=== PATIENT | female | born 1945 | race Caucasian/White ===

== ENCOUNTER 2017-09-15 08:57 | Emergency (ER) | payer MEDICARE, BC ==
[2017-09-15 11:11] VITALS: BP 170/79
--- NOTE | 2017-09-15 11:39 | EDM.PDOC ---
ED HPI GENERAL MEDICAL PROBLEM - General Chief Complaint: Bite:Animal, Insect Stated Complaint: TICK BITE - R GROIN Time Seen by Provider: 09/15/17 11:21 Source of Information: Reports: Patient History Limitations: Reports: No Limitations - History of Present Illness INITIAL COMMENTS - FREE TEXT/NARRATIVE: 72 yo female presents to the ER with three day hx of night sweats and fatigue. She was seen in clinic after tick bite 2 weeks ago with negative for lymes. She did find a deer tick right groin yesterday. She removed tick and is pretty sure it was a deer tick. She has had Lyme's disease in the past and states she feel very similar to then. She also complains of itchy scalp. She does take tramadol and stated that she did not eat with this medication this morning. generally healthy. 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, Heart Murmur Musculoskeletal History: Reports: Osteoarthritis Neurological History: Reports: Brain Injury Dermatologic History: Reports: Benign Melanoma - Past Surgical History Female Surgical History: Reports: Section Social & Family History - Tobacco Use Smoking Status *Q: Never Smoker ED ROS GENERAL - Review of Systems Review Of Systems: See Below Constitutional: Reports: Fever, Chills, Malaise, Fatigue HEENT: Denies: Rhinitis, Sinus Problem Respiratory: Denies: Shortness of Breath, Wheezing, Cough Cardiovascular: Denies: Chest Pain GI/Abdominal: Denies: Abdominal Pain : Denies: Dysuria ED EXAM, ANIMAL BITE - Physical Exam Exam: See Below Exam Limited By: No Limitations General Appearance: Alert, WD/WN, No Apparent Distress Head: Atraumatic, Normocephalic Neck: Normal Inspection, Supple, Non-Tender. No: Lymphadenopathy (R), Lymphadenopathy (L) Respiratory/Chest: No Respiratory Distress, Lungs Clear, Normal Breath Sounds Cardiovascular: Regular Rate, Rhythm GI/Abdominal: Soft, Non-Tender Neurological: Alert, Oriented Psychiatric: Normal Affect, Normal Mood Skin Exam: Normal Color, Warm/Dry, Rash (target lesion right groin1 cm in diameter) Course - Vital Signs Last Recorded V/S: Last Vital Signs Temp 36.3 C 09/15/17 11:10 Pulse 68 09/15/17 11:10 Resp 13 09/15/17 11:10 BP 170/79 H 09/15/17 11:10 Pulse Ox 98 09/15/17 11:10 Departure - Departure Time of Disposition: 11:34 Disposition: Home, Self-Care 01 Condition: Good Clinical Impression: Lyme disease, Itchy scalp Tick bite of groin Qualifiers: Encounter type: initial encounter Qualified Code(s): S30.861A - Insect bite ( nonvenomous) of abdominal wall, initial encounter - Discharge Information Instructions: Tick Bite Information, Adult, [id number] Referrals: Linnea Giang PA [Primary Care Provider] - Forms: ED Department Discharge Additional Instructions: Doxycycline 100 mg twice daily for 14 days. be sure to eat with this medication or it will make you nauseated wash bite site with warm soapy water I am treating you for lyme disease do to the night sweats and fatigue, this was not based on a positive lab it was based on recent tick bite bite and symptoms
== END 2017-09-15 11:55 | disposition home or self-care (01) ==
LOC: JP.ED 08:57
DX: S60.861A Insect bite (nonvenomous) of right wrist, initial encounter (principal); A69.20 Lyme disease, unspecified; Z88.6 Allergy status to analgesic agent; Z88.5 Allergy status to narcotic agent; Z88.1 Allergy status to other antibiotic agents; Z79.899 Other long term (current) drug therapy; Z88.8 Allergy status to other drugs, medicaments and biological substances; W57.XXXA Bitten or stung by nonvenomous insect and other nonvenomous arthropods, initial encounter
CPT/HCPCS: 99283

== ENCOUNTER → 2018-09-03 | Outpatient (CLI) | payer MEDICARE ==
--- NOTE | 2018-09-05 12:34 | CRLMY ---
INDICATION: Bilateral screening mammogram asymptomatic 73 year old female been obtained using full-field digital technique. These mammographic images were interpreted with the benefit of computer-aided detection. COMPARISON FILM: 09/04/16, 02/15/15. FINDINGS: There are scattered fibroglandular densities. There are no masses or calcifications that are suspicious for malignancy. IMPRESSION: There is no radiographic evidence for malignancy. ASSESSMENT: BI-RADS Category 2: Benign RECOMMENDATION: Routine screening mammogram in 1 year. A lay language report of this examination will be provided to the patient. Breast Tomosynthesis was used in this interpretation. [email or web address] Dictated by: Marcin [email or web address].MD @ 09/05/2018 12:32:24 (Electronically Signed)
== END | disposition home or self-care (01) ==
LOC: JP.MAM 09:20
PROVIDERS: ATTEND Physician Assistant
DX: Z12.31 Encounter for screening mammogram for malignant neoplasm of breast (principal)
CPT/HCPCS: 77063; 77067

== ENCOUNTER 2020-07-20 15:10 | Emergency (ER) | payer MEDICARE ==
[2020-07-20 15:30] VITALS: BP 168/82; PULSE 79
--- NOTE | 2020-07-20 15:44 | EDM.PDOC ---
ED HPI GENERAL MEDICAL PROBLEM - General Chief Complaint: Lower Extremity Injury/Pain Stated Complaint: LEFT LEG SWOLLEN/FELL Time Seen by Provider: 07/20/20 15:38 Source of Information: Reports: Patient, RN Notes Reviewed History Limitations: Reports: No Limitations - History of Present Illness INITIAL COMMENTS - FREE TEXT/NARRATIVE: 75-year-old female presents emergency department day complaint of left leg pain she injured herself when she tripped hip the anterior aspect of her lower leg on a tree stump, pain is so severe she cannot ambulate does have a bulge at the superior aspect of the lower extremity, no loss of consciousness did not hit her head Left Leg Pain Score (Numeric/FACES): 5 - Related Data Allergies Allergy/AdvReac Type Severity Reaction Status Date / Time aspirin Allergy Nausea Verified 07/20/20 15:30 codeine Allergy Nausea Verified 07/20/20 15:30 glucosamine Allergy Itching Verified 07/20/20 15:30 Sulfa (Sulfonamide Allergy Nausea Verified 07/20/20 15:30 Antibiotics) Home Meds: Home Meds traMADol HCl [Ultram] 100 mg PO Q8H PRN 02/04/13 [History] Alendronate Sodium 1 tab PO WEEKLY 04/06/15 [History] Calcium-Vitamin D 1 tab PO DAILY 04/06/15 [History] Multi-Vitamin 1 tab PO DAILY 04/06/15 [History] Amoxicillin 500 mg PO TID 07/20/20 [History] Latanoprost/Pf [Latanoprost 0.005% Eye Drop] 1 drop OP BEDTIME 07/20/20 [History] Timolol [Betimol 0.5% Ophth Soln] 10 ml EYEBOTH DAILY 07/20/20 [History] Past Medical History HEENT History: Reports: Cataract, Glaucoma Cardiovascular History: 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, Heart Murmur Musculoskeletal History: Reports: Osteoarthritis Neurological History: Reports: Brain Injury Dermatologic History: Reports: Benign Melanoma - Past Surgical History Female Surgical History: Reports: Section Social & Family History - Tobacco Use Tobacco Use Status *Q: Never Tobacco User Review of Systems - Review of Systems Review Of Systems: See Below Musculoskeletal: Reports: Leg Pain Skin: Reports: Bruising ED EXAM, GENERAL - Physical Exam Exam: See Below Free Text/Narrative:: Examination of the left lower extremity I do appreciate some bulging and bruising the superior aspect just inferior to the knee she does not tolerate any movement it is tender to the touch the skin is tight it is not warm to the touch pedal pulses +2 Exam Limited By: No Limitations General Appearance: Alert, WD/WN, No Apparent Distress Respiratory/Chest: No Respiratory Distress Course - Vital Signs Last Recorded V/S: Last Vital Signs Temp 97.9 F 07/20/20 15:28 Pulse 79 07/20/20 15:28 Resp 16 07/20/20 15:28 BP 168/82 H 07/20/20 15:28 Pulse Ox 98 07/20/20 15:28 - Orders/Labs/Meds Orders: Active Orders 24 hr Category Date Time Status Drain Abscess or Cyst [US] Stat Exams 07/20/20 15:49 Ordered Tibia Fibula Lt [CR] Stat Exams 07/20/20 15:41 Taken Departure - Departure Time of Disposition: 16:45 Disposition: Home, Self-Care 01 Condition: Fair Clinical Impression: Hematoma of left lower leg - Discharge Information Referrals: Linnea Giang PA [Primary Care Provider] - Forms: ED Department Discharge Additional Instructions: Continue to use the crutches as needed for comfort, rest ice elevation will help reduce the hematoma, please followup with your primary care provider in 3-5 days if not better, please call return to the emergency department with worsening of symptoms. Sepsis Event Note (ED) - Evaluation Sepsis Screening Result: No Definite Risk - Focused Exam Vital Signs: Vital Signs Temp Pulse Resp BP Pulse Ox 07/20/20 15:28 97.9 F 79 16 168/82 H 98 - My Orders Last 24 Hours: My Active Orders 07/20/20 15:41 Tibia Fibula Lt [CR] Stat 07/20/20 15:49 Drain Abscess or Cyst [US] Stat - Assessment/Plan Last 24 Hours: My Active Orders 07/20/20 15:41 Tibia Fibula Lt [CR] Stat 07/20/20 15:49 Drain Abscess or Cyst [US] Stat Plan: Assessment Acuity = acute Site and laterality = hematoma left leg Etiology = trauma from the fall Manifestations = pain Location of injury = Home Lab values = x-ray reveals no fracture official read radiologist pending, ultrasound does show large hematoma 6 cm in size however it is starting to form is not expanding official read is pending Plan I did review lab work with her she is got a try crutches at home follow-up primary care 3 to 5 days as needed This note was dictated using [employer] voice recognition software please call with any questions on syntax or grammar.
--- NOTE | 2020-07-21 08:56 | CR ---
Tibia Fibula Lt CLINICAL HISTORY: Trauma, fall FINDINGS: Two views show no evidence of fracture or bone destruction. There is soft tissue swelling over the upper spaulding. Impression: Upper pretibial soft tissue swelling No fracture or osseous lesion
--- NOTE | 2020-07-21 08:57 | US ---
Extremity Non Vascular Lt CLINICAL HISTORY: Swelling left leg FINDINGS: There is a complex focus just below the knee measuring 7 x 3 x 6 cm. There is no internal flow IMPRESSION: Lower leg hematoma just below the knee described above.
== END 2020-07-20 17:16 | disposition home or self-care (01) ==
LOC: JP.ED 15:10
DX: S80.12XA Contusion of left lower leg, initial encounter (principal); Z88.6 Allergy status to analgesic agent; Z88.5 Allergy status to narcotic agent; Z88.8 Allergy status to other drugs, medicaments and biological substances; Z88.2 Allergy status to sulfonamides; W01.0XXA Fall on same level from slipping, tripping and stumbling without subsequent striking against object, initial encounter
CPT/HCPCS: 73590-26-LT; 73590-LT; 76881-26; 76881-LT; 99282; 99284-25

== ENCOUNTER 2020-08-08 08:31 | Day surgery (SDC) | payer MEDICARE ==
[~2020-08-08 08:31] MED LIST: Bupivacaine 0.5% 50 ML MDV ONE; Lidocaine 1% with EPINEPHrine 1:100,000 50 ML MDV ONE
[2020-08-08] MEDS ORDERED: ceFAZolin 2 GM in Premix Bag 1 BAG IV ONE (09:30)
[2020-08-08] MEDS ORDERED: Sodium Chloride 0.9% 1,000 ML IV SCH (09:30)
[2020-08-08] MEDS ORDERED: Propofol 200 MG/20 ML SDV ONE ×2 (09:51→10:39)
[2020-08-08] MEDS ORDERED: fentaNYL 100 MCG/2 ML SDV ONE ×2 (09:52→10:39)
[2020-08-08] MEDS ORDERED: Midazolam 1 MG/ML 2 ML SDV ONE (10:43)
[2020-08-08 12:59] VITALS: BP 158/86; PULSE 81
--- NOTE | 2020-08-08 14:48 | OR ---
DATE OF PROCEDURE: 08/08/2020 SURGEON: Chencho Shaw MD PROCEDURE: Evacuation of hematoma, left leg. COMPLICATIONS: None. INFRASTRUCTURE CONSULTANT: None. ANESTHESIA: MAC. PREOPERATIVE DIAGNOSIS: Left leg hematoma secondary to trauma. POSTOPERATIVE DIAGNOSIS: Left leg hematoma secondary to trauma. RISKS: Risks, benefits, alternatives, and limitations including, but not limited to infection, bleeding, and other risks not listed here were explained to the patient who wished to proceed. PROCEDURE IN DETAIL: The patient was placed in supine position. Left leg was readily identified. This was prepped and draped. This was anesthetized with 1% lidocaine. A single debbie was created in the skin. Using suction irrigation techniques, approximately 300 mL of solid blood/clot was noted. This was then thoroughly irrigated. A piece of quarter- inch iodoform packing was placed. Dressings were applied. The patient tolerated the procedure well. Chencho Shaw MD /[id number]
== END 2020-08-08 12:30 | disposition home or self-care (01) ==
LOC: JP.SDS 08:31
PROVIDERS: ATTEND Surgery
DX: S80.12XA Contusion of left lower leg, initial encounter (principal); Z88.2 Allergy status to sulfonamides; Z88.6 Allergy status to analgesic agent; Z88.8 Allergy status to other drugs, medicaments and biological substances; X58.XXXA Exposure to other specified factors, initial encounter
CPT/HCPCS: 10140; 36415; 80048; 85027; J0690; J2704; J3010; J3490; J2250

== ENCOUNTER 2020-08-09 15:27 | Emergency (ER) | payer MEDICARE ==
[2020-08-09 15:36] VITALS: BP 153/69; PULSE 107
[2020-08-09] MEDS ORDERED: Acetaminophen 500 MG Tab PO ONE (16:05)
--- NOTE | 2020-08-09 16:10 | EDM.PDOC ---
ED HPI GENERAL MEDICAL PROBLEM - General Chief Complaint: Back Pain or Injury Stated Complaint: MEDICAL VIA [facility] Time Seen by Provider: 08/09/20 15:45 Source of Information: Reports: Patient, EMS, Family History Limitations: Reports: No Limitations - History of Present Illness INITIAL COMMENTS - FREE TEXT/NARRATIVE: 75-year-old female who just had a procedure yesterday for hematoma removal on her left leg developed chills this afternoon, a low-grade fever and back discomfort. She does have chronic back pain. No shortness of breath or cough. Duration: Hour(s): (Increased back pain and fever for the past 6 hours) Back Pain Score (Numeric/FACES): 10 Right Lower Leg Pain Score (Numeric/FACES): 8 - Related Data Allergies Allergy/AdvReac Type Severity Reaction Status Date / Time glucosamine Allergy Itching Verified 08/09/20 15:37 aspirin AdvReac Nausea Verified 08/09/20 15:37 codeine AdvReac Nausea Verified 08/09/20 15:37 Sulfa (Sulfonamide AdvReac Nausea Verified 08/09/20 15:37 Antibiotics) Home Meds: Home Meds traMADol HCl [Ultram] 100 mg PO Q8H PRN 02/04/13 [History] Latanoprost/Pf [Latanoprost 0.005% Eye Drop] 1 drop OP BEDTIME 07/20/20 [History] Alendronate Sodium [Fosamax] 70 mg PO WEEKLY 08/05/20 [History] Calcium Carb/Vit D3/Minerals [Calcium 600+D Plus Minerals] 1 each PO DAILY 08/05/20 [History] Celecoxib [CeleBREX] 200 mg PO DAILY 08/05/20 [History] DULoxetine [Cymbalta] 20 mg PO DAILY 08/05/20 [History] Multivitamin [Multi-Vitamin Daily] 1 each PO DAILY 08/05/20 [History] Past Medical History HEENT History: Reports: Cataract, Glaucoma Cardiovascular History: 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, Heart Murmur 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: Musculoskeletal History: Reports: Osteoarthritis Neurological History: Reports: Brain Injury Other Neuro History: 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 Psychiatric History: Reports: Depression Dermatologic History: Reports: Benign Melanoma - Infectious Disease History Infectious Disease History: Reports: Chicken Pox, Measles, Mumps - Past Surgical History HEENT Surgical History: Reports: Cataract Surgery Cardiovascular Surgical History: Reports: None Female Surgical History: Reports: Section Social & Family History - Family History Family Medical History: Unobtainable - Tobacco Use Tobacco Use Status *Q: Never Tobacco User - Caffeine Use Caffeine Use: Reports: Coffee - Recreational Drug Use Recreational Drug Use: No ED ROS GENERAL - Review of Systems Review Of Systems: See Below Constitutional: Reports: Fever, Chills, Malaise Respiratory: Denies: Shortness of Breath, Cough Cardiovascular: Denies: Chest Pain GI/Abdominal: Denies: Nausea, Vomiting Musculoskeletal: Reports: Back Pain, Other (Left leg pain) Skin: Reports: Bruising, Erythema (Bruising and erythema around the left leg injury and surgery) Neurological: Reports: Headache ED EXAM, GENERAL - Physical Exam Exam: See Below Exam Limited By: No Limitations General Appearance: Alert, No Apparent Distress Head: Atraumatic, Normocephalic Respiratory/Chest: No Respiratory Distress, Lungs Clear Cardiovascular: Regular Rate, Rhythm, Tachycardia GI/Abdominal: Soft, Non-Tender Neurological: Alert, Oriented Psychiatric: Normal Affect, Normal Mood Skin Exam: Other (There is some erythema with slight warmth along the edge of the dressings wrapping the left lower extremity) Course - Vital Signs Last Recorded V/S: Last Vital Signs Temp 102.3 F H 08/09/20 15:31 Pulse 107 H 08/09/20 15:31 Resp 18 08/09/20 15:31 BP 153/69 H 08/09/20 15:31 Pulse Ox 98 08/09/20 15:31 - Orders/Labs/Meds Meds: Medications Discontinued Medications Generic Name Dose Route Start Last Admin Trade Name Nikole PRN Reason Stop Dose Admin Acetaminophen 1,000 mg 08/09/20 16:05 08/09/20 16:10 Acetaminophen 500 Mg Tab PO 08/09/20 16:06 1,000 mg ONETIME ONE Administration - Re-Assessments/Exams Free Text/Narrative Re-Assessment/Exam: 08/10/20 11:55 This patient probably has some bacteremia from the procedure and possibly some early cellulitis along the pressure dressings. She was started on Augmentin twice daily and given 10 hydrocodone for extra pain control instead of the tramadol and encouraged to use anti-inflammatories as well. She was also given 1000 mg of acetaminophen orally. She felt much better on discharge and will return if symptoms do not improve with the antibiotic and keep her follow-up appointments as scheduled. Departure - Departure Time of Disposition: 16:22 Disposition: Home, Self-Care 01 Clinical Impression: Postoperative fever, Back pain Traumatic hematoma of lower leg Qualifiers: Encounter type: initial encounter Laterality: left Qualified Code(s): S80.12XA - Contusion of left lower leg, initial encounter - Discharge Information Instructions: Fever, Adult, [id number] Referrals: PCP,None [Primary Care Provider] - Forms: ED Department Discharge, ED Department Discharge Care Plan Goals: Take antibiotic twice daily for at least 7 days with food, use hydrocodone for pain control instead of Ultram for the next 48 hours. Recheck in the next 2 days if not improving satisfactorily, otherwise finish at least 7 days of antibiotic. Sepsis Event Note (ED) - Evaluation Sepsis Screening Result: Possible Sepsis Risk
== END 2020-08-09 16:22 | disposition home or self-care (01) ==
LOC: JP.ED 15:27
DX: S80.12XA Contusion of left lower leg, initial encounter (principal); R50.82 Postprocedural fever; M54.5 Low back pain; R00.0 Tachycardia, unspecified; R51.9 Headache, unspecified; Z88.8 Allergy status to other drugs, medicaments and biological substances; Z88.5 Allergy status to narcotic agent; Z88.2 Allergy status to sulfonamides; X58.XXXA Exposure to other specified factors, initial encounter
CPT/HCPCS: 99284; A9270-GY

== ENCOUNTER 2022-06-17 08:02 | Emergency (ER) | payer MEDICARE ==
[2022-06-17 08:13] VITALS: BP 200/87; PULSE 79
[2022-06-17] MEDS ORDERED: Ketorolac 30 MG/ML SDV IM ONE (08:31)
== END 2022-06-17 09:09 | disposition home or self-care (01) ==
LOC: JP.ED 08:02
DX: M25.511 Pain in right shoulder (principal); Z88.2 Allergy status to sulfonamides; Z88.5 Allergy status to narcotic agent; Z88.8 Allergy status to other drugs, medicaments and biological substances
CPT/HCPCS: 73030; 96372; 99283; J1885